=== PATIENT | male | born 1980 | race Caucasian/White ===

== ENCOUNTER 2018-08-11 08:24 | Emergency (ER) | payer OTHER, SELFPAY ==
[2018-08-11 08:25] VITALS: BP 150/84; PULSE 76; RESP 18; TEMP 36.6; O2SAT 99; BMI 33.4
--- NOTE | 2018-08-11 08:46 | ED.DCSUM_ITS ---
History of Present Illness Chief Complaint: Eye Problem Informant: Patient, Family Location: Left Eye Onset: Days - Onset 2 days ago after using [place] Context: Onset with activity Timing: Continuous Current Severity: Mild Maximum Severity: Moderate Worsened by: Rubbing and blinking Relieved by: Nothing Associated Symptoms - Eyes: Crusting, Drainage, Foreign body sensation, Matting, Photophobia, Redness History of injury: Uncertain Visual correction: None Narrative: Patient is a 38-year-old male who presents with foreign body sensation, redness, drainage and matting of his eyelash for the past 2 days. Onset of irritation occurred after using an air gun at work. He is automobile glass technician. There is no history of metal pounding on metal. He was not wearing safety goggles. He denies loss of vision or double vision. He denies URI symptoms or allergic symptoms. There is no history of diabetes or glaucoma. Prior similar symptoms: No Recent Illness/Hospitalization: No - Past Medical History (1) No significant past medical history Status: Acute Past Medical History - Allergies and Home Meds Allergies/Adverse Reactions: Allergies No Known Allergies Allergy (Verified 08/11/18 08:27) Primary Care Physician: Care Physician,No Primary [Primary Care Provider] - Past Medical History: None Lives: Spouse/ Significant Other Smoking Status: Never smoker Drugs: None Review of Systems General: Denies: Chills, Fever Eyes: Reports: Blurred vision - left, - - Read HPI.. Denies: Visual changes - bilaterally, Diplopia ENT: Denies: Rhinorrhea, Sore throat Skin: Denies: Rash Hematologic: Denies: Easy bruising, Easy bleeding Allergy: Denies: Uticaria, Swelling of the mouth, Swelling of the tongue Physical Exam Visual Acuity: right: 20/40, left: 20/50, bilateral: 20/30 Visual Acuity: Uncorrected Eyelid: Normal inspection, Left eyelid everted, No foreign body, Edema to left eyelid, - Right Conjunctiva/Sclera: Normal inspection, No foreign body, No erythema Left Conjunctiva/Sclera: Diffuse focal injection, - - Foreign body was noted using slit lamp. Foreign bodies metallic with rust ring noted. Right Cornea: Normal inspection, No foreign body, No abrasion, No dye uptake Left Cornea: Tetracaine instilled, Corneal abrasion, Fluorescein dye uptake, Foreign body, - Extraocular Motion: Normal exam, No pain, No palsy, No nystagmus Pupils: Normal accomodation, PERRL Right pupil size in mm: 3 Left pupil size in mm: 3 Anterior chamber: Normal exam, Deep and quiet Posterior Segment: Normal fundoscopic exam, - - Cup-to-disc ratio is normal. There is no papilledema. Vital Signs/Narrative: Vital Signs Temp Pulse Resp BP Pulse Ox 08/11/18 08:25 97.9 F 76 18 150/84 H 99 Inital Vital Signs reviewed: Yes General: Well nourished, Well developed Head: Normocephalic, Atraumatic ENT: Moist mucous membranes, No rhinorrhea Neck: Supple, Nontender Cardiovascular: Regular rate, Regular rhythm, No murmurs Respiratory: No distress Skin: Normal color, No rash Neurological: Alert, Oriented x3, Cranial nerves II-XII grossly intact, Normal Strength, Normal Sensation Psychological: Normal affect Diagnostic/Tx/Re-eval - Medical Decision Making Visual acuity pending. Will anesthetize eye with tetracaine and stained with foreseen. Photophobia to direct or consensual light. Metallic foreign body noted. Using ophthalmic bur metallic foreign body and rust ring was removed. Because there is evidence of infection patient was placed on ciprofloxacin ophthalmic drops. He was given Dr. Orlando Armando's name for follow-up. Procedures Procedure(s): Removal of metallic foreign body and rust ring with ophthalmic bur ED Disposition - Plan for ED Patient: Disposition: Home or Assisted Living Instructions: ED Foreign Body Cornea W Rust Ring Prescriptions: Ciprofloxacin 0.3% [Ciloxan] 1 drp LEFT EYE Q4 #1 bottle Referrals: Care Physician,No Primary [Primary Care Provider] - Orlando Armando MD [STAFF PHYSICIAN] - 1-2 Days if not improving
[2018-08-11] MEDS: Fluorescein 1 MG STRIP 1 STRIP LEFT EYE (09:00)
[2018-08-11] MEDS: Tetracaine 0.5% Ophthalmic Bottle 1 DRP EACH EYE (09:00)
== END 2018-08-11 11:27 | disposition home or self-care (01) ==
PROVIDERS: Emergency Provider Emergency Medicine
DX: T15.02XA Foreign body in cornea, left eye, initial encounter (principal); H10.89 Other conjunctivitis; X58.XXXA Exposure to other specified factors, initial encounter; Y93.9 Activity, unspecified; Y92.9 Unspecified place or not applicable; Y99.9 Unspecified external cause status
CPT/HCPCS: 99283

== ENCOUNTER 2023-05-24 08:33 | Emergency (ER) | payer OTHER, SELFPAY ==
[2023-05-24 08:35] VITALS: BP 163/106; PULSE 66; RESP 18; TEMP 36; O2SAT 100; BMI 33.9
--- NOTE | 2023-05-24 08:55 | EKG12_ITS ---
Test Reason : DIZZY Blood Pressure : / mmHG Vent. Rate : 068 BPM Atrial Rate : 068 BPM P-R Int : 168 ms QRS Dur : 080 ms QT Int : 412 ms P-R-T Axes : 030 010 030 degrees QTc Int : 438 ms Normal sinus rhythm Normal ECG Confirmed by BRENTON MACDONALD, KALPANA ([id number]), online editor CHARISSE SAUER ([id number]) on 05/26/2023 9:11:06 AM Referred By: Confirmed By:KALPANA FARRIS MD
--- NOTE | 2023-05-24 08:55 | CT_ITS ---
STUDY: CTA HEAD AND NECK WITH CONTRAST REASON FOR EXAM: Male, 43 years old. Vertigo RADIATION DOSAGE (If Supplied By Facility): CTDIvol = ( 29.49 ) mGy, DLP = ( 1511.77 ) mGycm TECHNIQUE: CT angiography was performed with a multi-detector CT scanner. Data acquisition was obtained from the skull base through the vertex following intravenous administration of IV 100mL Isovue-370. MIP images were reconstructed from the axial data set. Post-processing of the angiographic images was performed, with multiplanar reformation and 3D reconstruction. Individualized dose optimization techniques were used for this CT. COMPARISON: No relevant priors. FINDINGS: Normal bilateral petrous carotid arteries. Normal right cavernous carotid artery with a normal supraclinoid bifurcation. Normal left cavernous carotid artery with a normal supraclinoid bifurcation. Normal right A1 segments of the anterior cerebral artery. Normal left A1 segments of the anterior cerebral artery. Normal intact anterior communicating artery (ACOM). Normal bilateral A2 segments of the anterior cerebral arteries. Normal right M1 and M2 segments of the middle cerebral arteries, with a normal M1 bifurcation. Normal left M1 and M2 segments of the middle cerebral arteries, with a normal M1 bifurcation. Normal right posterior communicating artery (PCOM). Normal left posterior communicating artery (PCOM). Normal bilateral vertebral arteries. Normal basilar artery with a normal basilar bifurcation. The visualized bilateral superior cerebellar (SCA) arteries are normal. Normal bilateral P1, P2 and visualized P3 segments of the posterior cerebral arteries. There is no demonstrated aneurysm of the [place] of [place]. There is no demonstrated abnormality of the visualized brain. Small air-fluid level is seen in the right maxillary sinus. AORTIC ARCH: Normal visualized aortic arch. Normal origins of the brachiocephalic, left common carotid, and left subclavian arteries. RIGHT CAROTID ARTERIES: Normal right common carotid artery (CCA). Normal right common carotid bulb. Normal origin of the right internal carotid (ICA) artery without a hemodynamically significant stenosis. Normal visualized cervical portion of the right internal carotid artery. Normal origin of the right external carotid artery (ECA). LEFT CAROTID ARTERIES: Normal left common carotid artery (CCA). Normal left common carotid bulb. Normal origin of the left internal carotid (ICA) artery without a hemodynamically significant stenosis. Normal visualized cervical portion of the left internal carotid artery. Normal origin of the left external carotid artery (ECA). VERTEBRAL ARTERIES: Normal bilateral vertebral arteries. CT/CTA Head AND Neck W/ Contrast IMPRESSION: Normal CTA Head and neck with contrast. Electronically Signed: Kirby Whitten MD at 10:26 [facility] ,
--- NOTE | 2023-05-24 08:56 | EX.ED.DYSGE1 ---
HPI History of Present Illness Chief Complaint: Dizziness Detail of Chief Complaint: Vertigo Informant: patient Narrative Narrative: Patient presents with an episode of vertigo. He states he woke around 7:00 this morning and felt like everything was spinning. He got to the point where he was nauseated and vomited. Patient is seen approximate 2 hours later and states symptoms are already significantly improving. He states he will get this intermittently but has noted increased frequency recently. He also notes a constant ringing in his ears for quite some time. He does not follow with a primary care physician. He denies chest pain or palpitations. PFSH PFSH Medical History no medical history no medical history Home Medications ciprofloxacin HCl 0.3 % eye drops 1 drp LEFT EYE Q4 ##1 08/11/18 [Rx Last Taken Unknown] meclizine 25 mg tablet 25 mg PO TID PRN dizziness #20 tabs 05/24/23 [Rx Last Taken Unknown] Allergy/AdvReac Type Severity Reaction Status Date / Time No Known Allergies Allergy Verified 08/11/18 08:27 Social History Smoking Status: Never smoker ROS ROS ED Constitutional Constitutional ED: Denies chills or fever(s) Eyes Eyes: Denies change in vision or discharge from eye(s) ENT ENT ED: Denies discharge from eye(s), rhinorrhea or sore throat Cardiovascular Cardiovascular: Denies chest pain or palpitations Respiratory/Chest Respiratory/Chest: Denies cough or dyspnea Gastrointestinal Gastrointestinal: Reports nausea and vomiting; Denies abdominal pain Musculoskeletal Musculoskeletal: Denies back pain or extremity pain Integumentary Denies Abrasions or rash Neurologic Neurologic: Denies headache(s), paresthesias or weakness Psychiatric Psychiatric: Denies anxiety or depression Allergic/Immunologic Allergic/Immunologic ED: Denies lip swelling or urticaria EXAM Physical Exam Const Vital Signs: 05/24/23 08:35 Temperature 96.8 F L Temperature Source Temporal Pulse Rate 66 Respiratory Rate 18 Blood Pressure 163/106 H Blood Pressure Mean 125 Pulse Ox 100 Oxygen Delivery Method Room Air Positive well nourished and well developed General Appearance ED: well developed HEENT Reports moist mucous membranes Eyes EOMs intact bilaterally Chest Wall inspection of chest normal and palpation of chest normal Resp normal respiratory effort and clear to auscultation bilaterally Cardio regular rate and regular rhythm GI non-tender Palpation: soft Extremity normal to inspection Neuro oriented x3 and no sensory deficits noted Neuro Narrative: NIH equals 0 at 08:55 Motor Exam: strength 5/5 throughout Psych mental status grossly normal Skin no rashes or lesions noted MDM MDM MDM Narrative Medical decision making narrative: IV line established. Labwork obtained to evaluate for leukocytosis, anemia, and electrolyte derangement. EKG obtained to evaluate for cardiac arrhythmia/ischemia. CTA of the head and neck obtained to evaluate for any vascular stenosis. Patient given p.o. Antivert. History & Record Review Discussion w/independent historian: Patient and Significant other Lab Data Attestation: I reviewed the patient's lab results. Labs: Laboratory Results - last 24 hr 05/24/23 09:24 WBC 5.1 RBC 4.92 Hgb 14.2 Hct 43.6 MCV 88.6 MCH 28.9 MCHC 32.6 RDW Std Deviation 38.3 RDW Coeff of Jaron 11.9 Plt Count 273 MPV 9.4 Immature Gran % (Auto) 0.400 Neut % (Auto) 61.8 Lymph % (Auto) 27.7 [place] % (Auto) 8.1 Eos % (Auto) 1.2 Baso % (Auto) 0.8 Absolute Neuts (auto) 3.2 Absolute Lymphs (auto) 1.41 Nucleated RBC % 0 Sodium 142 Potassium 4.1 Chloride 111 H Carbon Dioxide 25.0 Anion Gap 6 BUN 17 Creatinine 1.09 Estim Creat Clear Calc 100.71 Est GFR (MDRD) Af Amer 95 Est GFR (MDRD) Non-Af 78 BUN/Creatinine Ratio 15.6 Glucose 125 H Calcium 9.0 Radiography Diagnostic Testing: Clinical Impression(s) from Imaging Studies Head/Neck CTA 05/24/23 08:55 IMPRESSION: Normal CTA Head and neck with contrast. Electronically Signed: Kirby Whitten MD at 10:26 EST , EKG Initial EKG: Attestation: I personally reviewed and interpreted this EKG as follows: Interpretation: Sinus Rhythm (Sinus at 68 with no acute ischemia.) Treatment and Re-Evaluation :: CBC and chemistry studies unremarkable. Glucose this morning is 125. EKG is sinus rhythm with no evidence of ischemia. CTA of the head and neck reveals no acute findings and no significant stenosis. Test results discussed with patient and spouse at bedside. With patient describing ringing in his ears and his vertigo episodes only last a short time, I am concerned that he may not have M?ni?re's disease. He will be referred to ENT for follow-up and further workup. I will send a prescription for Antivert to the pharmacy for him that he could use for severe attacks. Return instructions given. Discharge Plan Triage Chief Complaint: Dizziness ED Provider: Shasta Borges Dx/Rx/DC Orders Clinical Impression: Vertigo Instructions: ED Vertigo, Unspecified Prescriptions: New meclizine 25 mg tablet 25 mg PO TID PRN (Reason: dizziness) Qty: 20 0RF No Action ciprofloxacin HCl 1 DROP bottle 1 drp LEFT EYE Q4 Qty: 1 0RF Rx Instructions: For the next 3-5 days Primary Care Provider: Care Physician,No Primary Referrals: Endy Yepez MD [Med Staff - Active Staff] - 5-7 Days Care Physician,No Primary [Primary Care Provider] - Disposition Disposition: Home, Self Care
--- NOTE | 2023-05-24 09:03 | NURSING ---
NO OLD EKGS
[2023-05-24] MEDS: 0.9% Normal Saline (1000mL) 1,000 ML 150 ML IV (09:20)
[2023-05-24] MEDS: Meclizine HCl 25 MG Tablet PO (09:20)
[2023-05-24 09:28] LABS: Absolute Lymphocyte Count 1.41 X10^3/uL (0.83-4.51); Absolute Neutrophil Count 3.2 X10^3/uL (2.0-7.7); Basophil# 0.04 X10^3/uL; Basophil% 0.8 % (0-1); Eosinophil# 0.06 X10^3/uL; Eosinophils% 1.2 % (0-5); Hematocrit 43.6 % (40-54); Hemoglobin 14.2 g/dL (13.0-16.5); Lymphocyte # 1.41 X10^3/ul (0.83-4.51); Lymphocyte % 27.7 % (19-41); Mean Corp Hgb Conc 32.6 g/dL (32-36); Mean Corpuscular Hgb 28.9 pg (27.0-32.0); Mean Corpuscular Volume 88.6 fL (80-94); Mean Platelet Vol. 9.4 fl (6.2-12.0); Monocyte# 0.41 X10^3/uL; Monocyte% 8.1 % (0-10); NRBC Flagged by Analyzer 0 % (0-5); Neutrophil # 3.15 X10^3/uL (2.7-7.7); Neutrophil % 61.8 % (47-70); Platelet Count 273 K/mm3 (150-450); RBC Distribution Width CV 11.9 % (11.6-14.6); RBC Distribution Width SD 38.3 fl (35.1-43.9); Red Blood Count 4.92 M/mm3 (4.6-6.2); White Blood Count 5.1 K/mm3 (4.4-11.0)
--- OUTSIDE RECORDS SUMMARY | 2023-05-24 09:43 | XMS RPT_ITS | CCD ---
Author Name Unknown Address [address] [place] [address] Organization [facility] Results Test Name Value Interpretation Reference Range Facil ity Progress note 01-17-2021 Note Date & Type Note Facility 01-17-2021 Note HNO ID: [id number] Author: Emily Wilcox PA-C Service: ? Author Type: Physician Licensed Sales Assistant Type: Progress Notes Filed: 01/17/2021 1:05 PM Note Text: This note was created using [employer]. Subjective Osvaldo Patino III is a 40 year old male. HPI Patient presents with nasal congestion cough chills and body aches for 2 days. He was exposed to his daughter who is positive for Covid. He has not had Covid previously. He is not vaccinated. Denies chest pain or shortness of breath. He denies vomiting or diarrhea. No change in smell or taste. He does have a temp here of 100. No OTC meds used. Review of Systems Constitutional: Positive for fatigue and fever. HENT: Positive for congestion and rhinorrhea. Negative for ear pain and sore throat. Respiratory: Positive for cough. Cardiovascular: Negative. Gastrointestinal: Negative. Genitourinary: Negative. Musculoskeletal: Positive for myalgias. Neurological: Positive for headaches. All other systems reviewed and are negative. No past medical history on file. No current outpatient medications on file. No current facility-administered medications for this visit. PAST SURGICAL HISTORY Procedure Laterality Date - NONE FAMILY HISTORY Problem Relation Age of Onset - Diabetes Father - Diabetes Brother - Lipids Father - Lipids Brother Social History Tobacco Use - Smoking status: Never Smoker - Smokeless tobacco: Never Used Substance Use Topics - Alcohol use: No - Drug use: No Objective BP 106/68 Pulse 94 Temp 37.8 ?C (100 ?F) Resp 16 Wt 98 kg (216 lb) SpO2 96% BMI 32.84 kg/m? Physical Exam Vitals reviewed. Constitutional: Appearance: Normal appearance. HENT: Head: Normocephalic and atraumatic. Right Ear: Tympanic membrane, ear canal and external ear normal. Left Ear: Tympanic membrane, ear canal and external ear normal. Nose: Congestion present. Mouth/Throat: Mouth: Mucous membranes are moist. Pharynx: Oropharynx is clear. No oropharyngeal exudate or posterior oropharyngeal erythema. Cardiovascular: Rate and Rhythm: Normal rate and regular rhythm. Heart sounds: Normal heart sounds. Pulmonary: Effort: Pulmonary effort is normal. Breath sounds: Normal breath sounds. Musculoskeletal: Cervical back: Neck supple. Lymphadenopathy: Cervical: No cervical adenopathy. Skin: General: Skin is warm and dry. Findings: No rash. Neurological: Mental Status: He is alert. Assessment and Plan ASSESSMENT/PLAN: 1. Viral URI with cough - ICD9: 465.9, ICD10: J06.9 - Discussed viral etiology and rationale for treatment. - Symptomatic treatment with prn analgesia - Supportive care with fluids and rest - Follow up in 3-5 days if symptoms persist or sooner if worsening of symptoms - 2019 CORONAVIRUS Emily Wilcox PA-C [facility] Summary Purpose Family History No Family History Records Found Advance Directives No Advanced Directives Records Found Additional Source Comments (unrecognized sect ion and content) No Status Records Found INFORMATION SOURCE (unrecogn ized section and content) FOR RECORDS PERTAINING TO PATIENTS WHO ARE OR HAVE BEEN ENROLLED IN A CHEMICAL DEPENDENCY/SUBSTANCEABUSE PROGRAM, SOME INFORMATION MAY BE OMITTED. This clinical summary was aggregated from multiple sources. Caution should be exercised in using it in the provision of clinical care. This summary normalizes information from multiple sources, and as a consequence, information in this document may materially change the coding, format and clinical context of patient data. In addition, data may be omitted in some cases. CLINICAL DECISIONS SHOULD BE BASED ON THE PRIMARY CLINICAL RECORDS. [employer] provides no warranty or guarantee of the accuracy or completeness of information in this document.
[2023-05-24 09:48] LABS: Anion Gap 6 (5-15); BUN 17 mg/dL (7-18); BUN/Creat Ratio 15.6 RATIO (10-20); Chloride 111 mmol/L (98-107); Creatinine, Serum 1.09 mg/dL (0.70-1.30); EST Glomerular Filtration Rate 78 mL/min (>60); Est Glom Filt Rate - Afr Amer 95 mL/min (>60); Estimated Creatinine Clearance 100.71 ml/min; Glucose 125 mg/dL (74-106); Potassium 4.1 mmol/L (3.5-5.1); Sodium Level 142 mmol/L (136-145)
== END 2023-05-24 11:23 | disposition home or self-care (01) ==
PROVIDERS: Emergency Provider Emergency Medicine; Visit Provider Emergency Medicine
DX: R42 Dizziness and giddiness (principal); R11.2 Nausea with vomiting, unspecified
CPT/HCPCS: 70496; 70498; 80048; 85025; 93005; 96360; 96361; 99283; J7030; Q9967; A4216